=== PATIENT | male | born 1950 | race Caucasian/White ===

== ENCOUNTER 2019-02-08 11:17 | Inpatient (IN) | payer MEDICARE ==
[~2019-02-08] VITALS: Ht 185.4 cm; Wt 71.3 kg
--- NOTE | 2019-02-08 11:39 | NUR ---
PT TO ROOM FROM LOBBY. ASSISTED PT FROM WHEELCHAIR TO GURNEY. PT CHANGING INTO GOWN.
--- NOTE | 2019-02-08 11:41 | NUR ---
68 Y/O MALE PRESENTS TO ED WITH C/O "LACK OF ENERGY. I FEEL WEAK AND NO ENERGY. IT'S BEEN ABOUT 4 DAYS. I USUALLY DON'T WEAR OXYGEN AT HOME. I'VE BEEN COUGHING AT HOME TOO. I'VE BEEN SOB. NO PAIN IN MY CHEST. I HAVE CHRON'S. SOMETIMES MY KIDNEYS HURT AND BOTH SIDES OF MY ABDOMEN." NO C/O N/V, TRAUMA, SYNCOPE, CP. NO C/O DYSURIA, HEMATURIA.
[2019-02-08] MEDS ORDERED: ASPIRIN 81 MG TABLET CHEW PO ONE (12:00)
[2019-02-08] MEDS ORDERED: ASPIRIN 81 MG TABLET CHEW ONE (12:01)
[2019-02-08 12:17] LABS: MEAN CORPUSCULAR HEMOGLOBIN 31.4 pg (27.5-34.5); MEAN CORPUSCULAR HGB CONC 33.2 g/dL (33.2-36.2); MEAN CORPUSCULAR VOLUME 94.4 fL (81-97); MEAN PLATELET VOLUME 8.3 fL (7.4-10.4); PLATELET COUNT 149 x10^3/uL (130-400); RED BLOOD COUNT 4.71 x10^6/uL (4.38-5.82)
[2019-02-08 12:32] LABS: ALANINE AMINOTRANSFERASE 29 U/L (12-78); ALBUMIN 2.9 g/dL (3.4-5.0); ANION GAP 4 mmol/L (5-15); CHLORIDE 102 mmol/L (98-107); CREATININE 1.02 mg/dL (0.7-1.3)
[2019-02-08 12:36] LABS: ALKALINE PHOSPHATASE 60 U/L (45-117); BILIRUBIN,TOTAL 0.7 mg/dL (0.2-1.0); TOTAL PROTEIN 6.5 g/dL (6.4-8.2); TROPONIN I < 0.015 ng/mL (0.000-0.045)
--- NOTE | 2019-02-08 12:36 | NUR ---
task RN note: PIV placed for CT scan. pt tolerated well. report given to primary RN Faye.
--- NOTE | 2019-02-08 12:37 | NUR ---
RECEIVED BEDSIDE REPORT FROM FORTUNATO GAGNON RN.
[2019-02-08 12:43] LABS: MD YES
--- NOTE | 2019-02-08 12:43 | NUR ---
PT PLACED ON ALL MONITORS. PT AWARE OF NEED FOR URINE SAMPLE, URINAL AT BEDSIDE. PT AWAITING CT AND DISPO.
[2019-02-08 12:46] LABS: <PLATELET ESTIMATE> ADEQUATE; <PLT MORPHOLOGY> NORMAL PLT MORPH; <RBC MORPHOLOGY> NORMAL; BAND#(MANUAL) 1.16 x10^3/uL; BANDS%(MANUAL) 17 % (0-7); BASOS#(MANUAL) 0.14 x10^3/uL (0-0.1); BASOS% (MANUAL) 2 % (0-1); LYMPH#(MANUAL) 0.54 x10^3/uL (1-3.4); LYMPHS% (MANUAL) 8 % (22-44); METAMYELOCYTES# (MANUAL) 0.07 x10^3/uL (0-0); METAMYELOCYTES% (MANUAL) 1 % (0-1); MONOS#(MANUAL) 0.75 x10^3/uL (0.3-2.7); MONOS% (MANUAL) 11 % (2-9); SEG#(MANUAL) 4.15 x10^3/uL (1.8-6.8); SEGS% (MANUAL) 61 % (42-75)
--- NOTE | 2019-02-08 13:00 | NUR ---
PT BACK FROM IMAGING.
--- NOTE | 2019-02-08 13:03 | NUR ---
BEDSIDE REPORT TO DOUGLAS JEAN.
[2019-02-08] MEDS ORDERED: OMNIPAQUE 350 MG/ML, 100ML BOTTLE ONE (13:06)
--- NOTE | 2019-02-08 13:15 | NUR ---
ASA GIVEN. PT RESTING WITH NO COMPLAINTS. VS UPDATED AND WNL.
[2019-02-08] MEDS ORDERED: CEFTRIAXONE PMX 1GM/50ML 50 ML IV ONE (13:30)
[2019-02-08] MEDS ORDERED: SODIUM CHLORIDE 0.9% 1,000ML IVBOLUS ONE (13:30)
[2019-02-08] MEDS ORDERED: CEFTRIAXONE PMX 1GM/50ML 50 ML ONE (14:47)
[2019-02-08] MEDS ORDERED: COLE5PAC PO (14:55)
[2019-02-08] MEDS ORDERED: MESA0.372 PO (14:56)
--- NOTE | 2019-02-08 14:57 | NUR ---
URINE COLLECTED AND SENT TO LAB. NS BOLUS AND ROCEPHIN STARTED. VS UPDATED AND WNL. PT RESTING WITH NO COMPLAINTS.
[2019-02-08 15:00] LABS: MICROSCOPIC INDICATED
[2019-02-08 15:30] LABS: CULTURE INDICATED? NO
--- NOTE | 2019-02-08 16:02 | NUR ---
JORDYNAR TELEPHONE HAND-OFF REPORT TO DOUGLAS NI.
[2019-02-08] MEDS ORDERED: ACETAMINOPHEN 325 MG TABLET PO PRN (17:00)
[2019-02-08] MEDS ORDERED: ONDANSETRON ODT 4 MG PO PRN (17:00)
[2019-02-08] MEDS: CEFTRIAXONE PMX 2GM/50ML 50 ML IV SCH (17:55)
[2019-02-08] MEDS: SODIUM CHLORIDE 0.9% 1,000 ML IV SCH (17:56)
[2019-02-08] MEDS: ENOXAPARIN 40 MG/0.4 ML SQ SCH (17:58)
[2019-02-08 18:07] VITALS: BP 112/68
[2019-02-08 18:18] VITALS: BP 112/68
[2019-02-08 19:15] VITALS: BP 119/62
[2019-02-08] MEDS ORDERED: MESALAMINE 0.75 GM PO SCH (21:00)
[2019-02-08] MEDS: COLESTIPOL GRANULES 5 GM PACKET PO SCH (21:20)
[2019-02-09 01:42] VITALS: BP 104/53
[2019-02-09] MEDS: SODIUM CHLORIDE 0.9% 1,000 ML IV SCH ×3 (02:23→21:37)
[2019-02-09 05:22] LABS: ANION GAP 5 mmol/L (5-15); CHLORIDE 108 mmol/L (98-107); CREATININE 0.74 mg/dL (0.7-1.3)
[2019-02-09 05:24] LABS: BASOPHILS % (AUTO) 0 % (0-1); EOSINOPHILS % (AUTO) 0 % (1-7); LYMPHOCYTES # (AUTO) 0.29 x10^3/uL (1-3.4); LYMPHOCYTES % (AUTO) 7 % (22-44); MD NO; MEAN CORPUSCULAR HEMOGLOBIN 32.5 pg (27.5-34.5); MEAN CORPUSCULAR HGB CONC 34.5 g/dL (33.2-36.2); MEAN CORPUSCULAR VOLUME 94.2 fL (81-97); MONOCYTES # (AUTO) 0.59 x10^3/uL (0.2-0.8); MONOCYTES % (AUTO) 15 % (2-9); NEUTROPHILS # (AUTO) 3.15 x10^3/uL (1.8-6.8); NEUTROPHILS % (AUTO) 78 % (42-75); PLATELET COUNT 133 x10^3/uL (130-400)
[2019-02-09 08:04] VITALS: BP 105/46
[2019-02-09] MEDS: AZITHROMYCIN 500 MG TABLET PO SCH (09:54)
[2019-02-09] MEDS: MESALAMINE 250 MG CAPSULE.ER PO SCH ×2 (10:38→21:36)
[2019-02-09 13:55] VITALS: BP 112/62
[2019-02-09] MEDS: ENOXAPARIN 40 MG/0.4 ML SQ SCH (17:56)
[2019-02-09] MEDS: CEFTRIAXONE PMX 2GM/50ML 50 ML IV SCH (18:32)
[2019-02-09 19:59] VITALS: BP 127/68
[2019-02-09] MEDS: COLESTIPOL GRANULES 5 GM PACKET PO SCH (20:11)
[2019-02-09 21:29] LABS: RAPID INFLUENZA A Negative (Negative); RAPID INFLUENZA B Negative (Negative)
[2019-02-10 03:48] VITALS: BP 107/57
[2019-02-10 05:15] LABS: BASOPHILS # (AUTO) 0.01 x10^3/uL (0-0.1); BASOPHILS % (AUTO) 0 % (0-1); EOSINOPHILS % (AUTO) 0 % (1-7); LYMPHOCYTES # (AUTO) 0.42 x10^3/uL (1-3.4); LYMPHOCYTES % (AUTO) 10 % (22-44); MD NO; MEAN CORPUSCULAR HEMOGLOBIN 32.6 pg (27.5-34.5); MEAN CORPUSCULAR VOLUME 93.2 fL (81-97); MEAN PLATELET VOLUME 7.6 fL (7.4-10.4); MONOCYTES # (AUTO) 0.73 x10^3/uL (0.2-0.8); MONOCYTES % (AUTO) 18 % (2-9); NEUTROPHILS # (AUTO) 2.93 x10^3/uL (1.8-6.8); NEUTROPHILS % (AUTO) 72 % (42-75); PLATELET COUNT 151 x10^3/uL (130-400); RED BLOOD COUNT 3.91 x10^6/uL (4.38-5.82)
[2019-02-10 05:24] LABS: CHLORIDE 108 mmol/L (98-107)
[2019-02-10 05:28] LABS: ANION GAP 1 mmol/L (5-15); CREATININE 0.84 mg/dL (0.7-1.3)
[2019-02-10] MEDS: SODIUM CHLORIDE 0.9% 1,000 ML IV SCH ×3 (05:51→23:17)
[2019-02-10 07:42] VITALS: BP 104/52
[2019-02-10] MEDS: AZITHROMYCIN 500 MG TABLET PO SCH (08:38)
[2019-02-10] MEDS: MESALAMINE 250 MG CAPSULE.ER PO SCH ×2 (08:38→21:42)
[2019-02-10] MEDS ORDERED: ALBUTEROL/IPRATROPIUM 2.5MG/0.5MG, 3 ML ONE (11:36)
[2019-02-10] MEDS ORDERED: ALBUTEROL/IPRATROPIUM 2.5MG/0.5MG, 3 ML NPPB PRN (12:00)
[2019-02-10 13:40] VITALS: BP 105/55
[2019-02-10 14:48] LABS: ANION GAP 4 mmol/L (5-15); CALCIUM 8.5 mg/dL (8.5-10.1); CHLORIDE 107 mmol/L (98-107)
[2019-02-10 14:49] LABS: CREATININE 0.85 mg/dL (0.7-1.3)
[2019-02-10] MEDS: ALBUTEROL/IPRATROPIUM 2.5MG/0.5MG, 3 ML NPPB SCH ×2 (16:07→20:47)
[2019-02-10] MEDS: ENOXAPARIN 40 MG/0.4 ML SQ SCH (18:09)
[2019-02-10] MEDS: CEFTRIAXONE PMX 2GM/50ML 50 ML IV SCH (18:09)
[2019-02-10 19:42] VITALS: BP 134/65
[2019-02-10] MEDS: COLESTIPOL GRANULES 5 GM PACKET PO SCH (20:29)
[2019-02-11 03:36] VITALS: BP 127/62
[2019-02-11 05:08] LABS: BASOPHILS # (AUTO) 0.01 x10^3/uL (0-0.1); BASOPHILS % (AUTO) 0 % (0-1); EOSINOPHILS # (AUTO) 0.01 x10^3/uL (0-0.4); EOSINOPHILS % (AUTO) 0 % (1-7); LYMPHOCYTES # (AUTO) 0.67 x10^3/uL (1-3.4); LYMPHOCYTES % (AUTO) 18 % (22-44); MD NO; MEAN CORPUSCULAR HEMOGLOBIN 32.7 pg (27.5-34.5); MEAN CORPUSCULAR HGB CONC 34.5 g/dL (33.2-36.2); MEAN CORPUSCULAR VOLUME 94.6 fL (81-97); MEAN PLATELET VOLUME 7.4 fL (7.4-10.4); MONOCYTES % (AUTO) 19 % (2-9); NEUTROPHILS # (AUTO) 2.36 x10^3/uL (1.8-6.8); NEUTROPHILS % (AUTO) 63 % (42-75); PLATELET COUNT 170 x10^3/uL (130-400); RED BLOOD COUNT 3.82 x10^6/uL (4.38-5.82); RED CELL DISTRIBUTION WIDTH 13.5 % (9.4-14.8)
[2019-02-11 06:57] VITALS: BP 109/47
[2019-02-11] MEDS: ALBUTEROL/IPRATROPIUM 2.5MG/0.5MG, 3 ML NPPB SCH ×4 (07:00→19:13)
[2019-02-11] MEDS: SODIUM CHLORIDE 0.9% 1,000 ML IV SCH ×2 (07:42→15:20)
[2019-02-11] MEDS: AZITHROMYCIN 500 MG TABLET PO SCH (07:42)
[2019-02-11] MEDS: MESALAMINE 250 MG CAPSULE.ER PO SCH ×2 (07:42→21:07)
[2019-02-11 13:10] VITALS: BP 132/52
[2019-02-11] MEDS: ENOXAPARIN 40 MG/0.4 ML SQ SCH (17:00)
[2019-02-11] MEDS: CEFTRIAXONE PMX 2GM/50ML 50 ML IV SCH (18:08)
[2019-02-11 19:50] VITALS: BP 117/60
[2019-02-11] MEDS: COLESTIPOL GRANULES 5 GM PACKET PO SCH (21:07)
[2019-02-12 00:15] VITALS: BP 116/53
[2019-02-12] MEDS: SODIUM CHLORIDE 0.9% 1,000 ML IV SCH ×2 (00:27→08:19)
[2019-02-12] MEDS: ALBUTEROL/IPRATROPIUM 2.5MG/0.5MG, 3 ML NPPB SCH ×4 (06:48→19:20)
[2019-02-12 07:12] VITALS: BP 146/69
[2019-02-12] MEDS: AZITHROMYCIN 500 MG TABLET PO SCH (08:19)
[2019-02-12] MEDS: MESALAMINE 250 MG CAPSULE.ER PO SCH ×2 (08:19→21:03)
[2019-02-12] MEDS ORDERED: FUROSEMIDE 40 MG/4 ML IV ONE (12:00)
[2019-02-12 15:15] VITALS: BP 152/80
[2019-02-12] MEDS: ENOXAPARIN 40 MG/0.4 ML SQ SCH (17:00)
[2019-02-12] MEDS: CEFTRIAXONE PMX 2GM/50ML 50 ML IV SCH (18:38)
[2019-02-12 19:46] VITALS: BP 136/65
[2019-02-12] MEDS: COLESTIPOL GRANULES 5 GM PACKET PO SCH (21:00)
[2019-02-13 00:46] VITALS: BP 132/64
[2019-02-13] MEDS: ALBUTEROL/IPRATROPIUM 2.5MG/0.5MG, 3 ML NPPB SCH ×2 (07:15→11:00)
[2019-02-13 08:04] VITALS: BP 125/59
[2019-02-13] MEDS: MESALAMINE 250 MG CAPSULE.ER PO SCH (08:43)
[2019-02-13] MEDS: AZITHROMYCIN 500 MG TABLET PO SCH (08:43)
[2019-02-13] MEDS ORDERED: AMOX1TAB61 PO (10:48)
[2019-02-13] MEDS ORDERED: ALBU18HF INH (10:48)
== END 2019-02-13 12:48 | disposition home or self-care (01) | DRG 871 ==
LOC: ED 14:24 → EDIP 15:21 → 3NE 16:21 → DCLOUNGE 02-13 12:39
PROVIDERS: ADMIT Hospitalist; ATTEND Hospitalist
DX: A41.9 Sepsis, unspecified organism (principal); J96.01 Acute respiratory failure with hypoxia; J18.0 Bronchopneumonia, unspecified organism; K50.90 Crohn's disease, unspecified, without complications; E86.0 Dehydration; F17.200 Nicotine dependence, unspecified, uncomplicated; Z87.440 Personal history of urinary (tract) infections; Z90.49 Acquired absence of other specified parts of digestive tract; Z88.8 Allergy status to other drugs, medicaments and biological substances
CPT/HCPCS: 36415; 71045; 74177; 80048; 80053; 81001; 83605; 83880; 84145; 84484; 85025; 86140; 86738; 87040; 87070; 87205; 87400; 87449; 93005; 94640; 96365; G0378; J0696; J1650; J1940; J7620; Q9967; J7030